=== PATIENT | male | born 1955 | race Caucasian/White ===

== ENCOUNTER → 2017-04-14 | Day surgery (SDC) | payer MEDICARE, BC ==
[~2017-04-14] MED LIST: COUM10TA PO; COUM5TAB PO; COZA50TA PO; FURO20 PO; GENTAMICIN SULFATE 80 MG/2 ML VIAL ONE; LACTATED RINGER'S 1000 ML INJ 1,000 ML ONE; METO50 PO; METO50TA PO; ONDANSETRON HCL 4 MG/2 ML VIAL IV PUSH ONE; PERC5TAB12 PO; PLAV75TA PO; PROPOFOL 200 MG/20 ML AMP IV ONE; ROSU40 PO; SODIUM CHLORIDE 0.9% INJ 100 ML IV ONE; [UNRECOGNIZED DRUG - CODE] PO
--- NOTE | 2017-04-14 15:35 | TN ---
cc: LARA SINGER M.D. DATE OF SURGERY: 04/14/2017 PREOPERATIVE DIAGNOSIS 1. Recurrent gross hematuria (ICD-10 code R31.0). 2. Bladder lesions (ICD-10 D41.4). 3. History of prostate cancer, status post radiation therapy. POSTOPERATIVE DIAGNOSIS 1. Recurrent gross hematuria (ICD-10 code R31.0). 2. Bladder lesions (ICD-10 D41.4). 3. History of prostate cancer, status post radiation therapy. PROCEDURE Cystourethroscopy with transurethral resection of bladder tumor and bladder biopsy with bladder washings (CPT code 29883), (CPT code 27799). INDICATIONS Mr. Nguyen is a 61-year-old gentleman with a previous history of prostate cancer for which he underwent intensity-modulated radiotherapy. 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 He presents now for definitive evaluation and diagnosis. FINDINGS Normal urethra with a moderate bulbous urethral stricture. Prostatic urethra was unremarkable with some mild radiation changes but nonobstructing. The bladder neck also was within normal limits. However, the entire trigone as well as the anterior bladder wall and bladder neck circumferentially shows erythematous bullous, edematous tissue with submucosal hemorrhage consistent with possible cystitis related to his radiation. The remainder of the bladder is spared of any abnormal mucosa or tumors. There is anteriorly one necrotic tumor identified. There is some significant trabeculation of the bladder and small diverticula and cellules also. No calcifications identified. PROCEDURE IN DETAIL The procedure as well as the risks and benefits were explained to the patient. Informed consent was obtained. The patient was taken to the major operating theatre where he was placed in supine position. The patient was identified as well as the operative site. A universal timeout was performed in the standard fashion. At this time general anesthetic and prophylactic intravenous antibiotics consisting of gentamicin 80 mg was administered. After adequate anesthetic he was placed in low dorsal lithotomy position, prepped and draped in the usual sterile fashion. At this time a 22.5 [place] cystoscope with a 30-degree lens was inserted in the urethra and bladder. The 30-degree lens was exchanged for a 70-degree lens and the entire bladder was systematically surveyed. Bladder barbotage was performed using normal saline and sent for cytological evaluation. The necrotic lesion in the anterior bladder wall was resected using rigid biopsy forceps and sent for pathological evaluation. A construction representative biopsy was then taken of the trigone. Care was taken not to resect or fulgurate near the ureteral orifices bilaterally which were identified. The [place] probe was used to fulgurate the biopsy sites. There was no active bleeding prior to the procedure and the biopsy sites were fulgurated. After hemostasis was confirmed the bladder was decompressed and the scope removed. The patient tolerated the procedure well, emerged from anesthetic without difficulty and was transferred to the recovery room in stable condition to be discharged home when criteria is met. Please note that the necrotic bladder tumor was approximately 5 mm or greater in size and the construction representative biopsy was approximately 5 mm. The patient was also noted to have yeast genitalis and was given a Mycolog II prescription postoperatively. MD QING Venegas/ARCELIA /1:56 PM /3:20 PM
== END | disposition home or self-care (01) ==
LOC: ESDC 09:26
PROVIDERS: ATTEND Urology
DX: N30.21 Other chronic cystitis with hematuria (principal); D41.4 Neoplasm of uncertain behavior of bladder; Z92.3 Personal history of irradiation; Z85.46 Personal history of malignant neoplasm of prostate
CPT/HCPCS: 00912; 52234; 88305; J1580; J2405; J3010; J7120; 88307